=== PATIENT | female | born 1975 | race Hispanic/Latino ===

== ENCOUNTER 2017-03-26 06:40 | Day surgery (SDC) | payer SELFPAY ==
[2017-03-26 06:57] VITALS: BMI 28.1
[2017-03-26] MEDS ORDERED: Lactated Ringer's 500 ML IV ONE ×2 (08:06)
[2017-03-26] MEDS ORDERED: Propofol 10 mg/ml Inj (20 ML) ONE (08:08)
[2017-03-26 09:12] VITALS: RESP 16; O2SAT 97
[2017-03-26 09:36] VITALS: BP 119/81; PULSE 60; TEMP 97.8
== END 2017-03-26 09:30 | disposition home or self-care (01) ==
LOC: C.ENDO 06:40
PROVIDERS: ATTEND Internal Medicine Gastroenterology
DX: K29.60 Other gastritis without bleeding (principal)
CPT/HCPCS: 43239; 84703; 88305; J2001; J2704; J7120